=== PATIENT | male | born 1950 | race Caucasian/White ===

== ENCOUNTER 2016-07-28 23:35 | Emergency (ER) | payer OTHER ==
--- NOTE | 2016-07-29 03:56 | ED CLINICAL REPORT ---
Clinical Report - Physicians/Mid Levels [facility] [address] [place] [address] 07/28/2016 23:35 [id number] Time Seen: 00:15 Jul 29 2016. Historian- patient. CPT: ER phys charges level 5 plus (#[id number]). EKG interpretation (#[id number]). HISTORY OF PRESENT ILLNESS Chief Complaint: DIZZINESS and WEAKNESS. ( Fall due to dizziness and weakness.). Severity described as moderate at its maximum. When seen in the E.D., it was gone. Modifying factors- worsened by standing up and changing position. Relieved by nothing. Described as feeling weak all over. This started just prior to arrival and is still present. No nausea or vomiting. Similar symptoms previously: None. Recent medical care: Not recently seen/assessed. REVIEW OF SYSTEMS No headache, double vision, fainting episodes, head injury or chest pain. No palpitations, black stools, fever, sore throat or cough. No abdominal pain, diarrhea, difficulty with urination, skin rash or enlarged lymph nodes. No chills or joint pain. The patient has had weakness. No difficulty walking. All systems otherwise negative, except as recorded above. PAST HISTORY ( Weakness. Leukocytosis. Anemia. Palpitations. Heart Disease. Coronary Artery Disease. Myocardial Infarction. Hypertension. Diabetes Mellitus. Benign Prostatic Hypertrophy. Depression Small pulmonary emboli 2013 Pneumonia 2013.). Medications: Lisinopril Oral 10 mg, daily. MetFORMIN HCl Oral (Tablet 1000 mg) 1 tablet, 2x a day. Nasonex Nasal 2 sprays, daily. Nitrostat Sublingual (Tablet Sublingual 0.4 mg) 1 tablet, PRN. OxyCODONE HCl Oral 5 mg, NEEDED. Tamsulosin HCl Oral (Capsule 0.4 mg) 1 capsule, daily. Vitamin c Oral (Tablet 1000 mg) 1 tablet, DAILY. LEVIMIR 50 UNITS AT NIGHT. Aspirin Oral (Tablet 325 mg) 1 tablet, DAILY. Carvedilol Oral (Tablet 12.5 mg) 1 tablet, 2X A DAY. Ferrous Sulfate Oral (Tablet 27 mg) 2 tablets, daily. Gemfibrozil Oral 600 mg, 2x a day. Allergies: No Known Drug Allergy. SOCIAL HISTORY Never smoker. No alcohol use or drug use. ADDITIONAL NOTES The nursing notes have been reviewed. PHYSICAL EXAM Vital Signs: 07/28/2016 23:40 BP: 123/53. HR: 77. RR: 18. O2 saturation: 95%. Temp: 99.2 F. Appearance: Alert. No acute distress. Eyes: Pupils equal, round and reactive to light. No nystagmus. Extraocular movements normal. ENT: Normal ENT inspection. TM's normal. Moist mucous membranes. Pharynx normal. Neck: Normal inspection. Neck supple. CVS: Normal heart rate and rhythm. Heart sounds normal. Pulses normal. Respiratory: No respiratory distress. Breath sounds normal. Abdomen: Soft and nontender. Back: Normal inspection. Skin: Skin warm. Normal skin color. No rash. Extremities: Extremities exhibit normal ROM. No calf tenderness. No lower extremity edema. Neuro: Alert. Oriented X 3. Mood/affect normal. Speech normal. Cranial nerves normal (as tested). No cerebellar findings. No motor deficit. No sensory deficit. Reflexes normal. LABS, X-RAYS, AND EKG EKG: No acute ischemia. Normal sinus rhythm. Normal P waves. Q waves in lead V1 and V2. Non-specific ST segment / T wave abnormalities. Prior EKG unavailable. The study has been interpreted contemporaneously. The study has been independently viewed by me. The EKG appears to be a good tracing. Laboratory Tests: UA-Culture if indicated: (BOZENA: 07/29/2016 02:41) ( MsgRcvd 07/29/2016 02:54) Final results Test Result Flag Units (Reference) URINE COLOR YELLOW URINE APPEARANCE CLEAR URINE GLUCOSE NEGATIVE (NEGATIVE) URINE BILIRUBIN NEGATIVE (NEGATIVE) URINE KETONE NEGATIVE (NEGATIVE) URINE SPECIFIC GRAVITY 1.025 (1.010-1.030) URINE PH 5.5 (5.0-8.0) URINE PROTEIN NEGATIVE (NEGATIVE) URINE UROBILINOGEN 0.2 EU/dL (0.2-1.0) URINE NITRITE NEGATIVE (NEGATIVE) URINE BLOOD NEGATIVE (NEGATIVE) URINE LEUK ESTERASE NEGATIVE (NEGATIVE) URINE RBC 0-1 rbc/hpf (0-1) URINE WBC 0-1 wbc/hpf (0-1) URINE EPITHELIAL CELLS 0-1 EPI/hpf (0-5) URINE BACTERIA NONE SEEN (NONE SEEN) URINE COMMENT CULT NOT INDICATED URINE CULTURES ARE SET-UP BASED ON THE FOLLOWING CRITERIA:POSITIVE NITRITEPOSITIVE LEUKOCYTE ESTERASEGREATER THAN 10 WHITE BLOOD CELLSMODERATE (2+) OR GREATER BACTERIA CBC w Diff: (BOZENA: 07/29/2016 00:55) ( [facility] 07/29/2016 01:06) Final results Test Result Flag Units (Reference) WHITE BLOOD COUNT 7.8 K/uL (4.5-11.5) RED BLOOD COUNT 3.72 L M/uL (4.50-5.90) HEMOGLOBIN 11.4 L gm/dL (13.5-17.5) HEMATOCRIT 33.7 L % (41.0-53.0) MEAN CELL VOLUME 91 fL (80-100) MEAN CORPUSCULAR HGB 31 pg (26-34) MEAN CORPUSCULAR HGB CONC 34 g/dL (31-37) RED CELL DISTRIBUTION WIDTH 13.2 % (11.6-14.8) PLATELET COUNT 198 K/uL (150-400) NEUTROPHIL % 76.7 H % (50-75) LYMPH % 11.4 L % (25-40) MONO % 10.7 % (3-14) EOSINOPHIL % 1.0 % (0-4) BASOPHIL % 0.2 % (0-2) PT with INR: (BOZENA: 07/29/2016 00:55) ( [facility] 07/29/2016 01:13) Final results Test Result Flag Units (Reference) INR 1.9 H (0.8-1.2) Low Intensity Therapy: INR 1.5-2.0 PT range 18.5-23.1Mod.Intensity Therapy: INR 2.0-3.0 PT range 23.1-31.5High Intensity Therapy: INR 2.5-3.5 PT range 27.4-35.5High Intensity Therapy 2: INR 3.0-4.0 PT range 31.5-39.3 Troponin-I: (BOZENA: 07/29/2016 02:31) ( [facility] 07/29/2016 02:53) Final results Test Result Flag Units (Reference) TROPONIN I <0.05 ng/mL (0.00-1.5) TROPONIN REFERENCE RANGE:<0.1 NEGATIVE0.1-1.5 INDETERMINANT>1.5 POSITIVE Urine Drug Screen: (BOZENA: 07/29/2016 02:41) ( [facility] 07/29/2016 02:57) Final results Test Result Flag Units (Reference) AMPHETAMINE/METHAMPHETAMINE NEGATIVE (NEGATIVE) BARBITURATE NEGATIVE (NEGATIVE) BENZODIAZEPINE NEGATIVE (NEGATIVE) CANNABINOID NEGATIVE (NEGATIVE) COCAINE NEGATIVE (NEGATIVE) ECSTASY NEGATIVE (NEGATIVE) METHADONE NEGATIVE (NEGATIVE) OPIATE NEGATIVE (NEGATIVE) The urine drug screen is a qualitative screening test fordrug overdose and abuse. All screen results should beconsidered as presumptive.Drugs screened for are as follows:BenzodiazepinesCocaineAmphetamines/MetamphetaminesTHC (Tetrahydrocannabinol)OpiatesBarbituratesEcstasyMethadonePositive results are unconfirmed. For confirmation, notifythe lab for the specimen to be sent to the reference lab.All confirmations must be performed by a differentmethodology.The ingestion of natural herbal and plant productscontaining Ephedra/Ephedra metabolites can produce in urineone or more substances capable of cross reacting withamphetamine/methamphetamine immunoassays. These testsprovide a preliminary result only. A more specificalternative chemical method must be used to obtain aconfirmed analytical result. BNP: (BOZENA: 07/29/2016 00:55) ( MngRcvd 07/29/2016 01:27) Final results Test Result Flag Units (Reference) B-TYPE NATRIURETIC PEPTIDE 142 H pg/ml (5-100) Lipase: (BOZENA: 07/29/2016 00:55) ( MngRcvd 07/29/2016 01:31) Final results Test Result Flag Units (Reference) LIPASE 703 H U/L (73-393) THYROID STIMULATING HORMONE 1.464 uIU/mL (0.30-3.74) CHEM 13 PANEL: (BOZENA: 07/29/2016 00:55) ( MsgRcvd 07/29/2016 01:25) Final results Test Result Flag Units (Reference) GLUCOSE 164 H mg/dL (70-110) BUN 29 H mg/dL (7-18) CREATININE 1.5 H mg/dL (0.6-1.3) Estimated GFR 49.77 mL/min Estimated GFR- >60 mL/min Note: Persistent reduction over 3 months in eGFR<60 mL/min/1.73 m2 defines CKD. Patients with eGFR values>=60 mL/min/1.73 m2 may also have CKD if evidence ofpersistent proteinuria. Additional information may be foundat www.kidney.org. SODIUM 140 mmol/L (136-145) POTASSIUM 4.1 mmol/L (3.5-5.1) CHLORIDE 105 mmol/L (98-107) CARBON DIOXIDE 21 mmol/L (21-32) CALCIUM 8.6 mg/dL (8.5-10.1) TOTAL PROTEIN 7.5 g/dL (6.4-8.2) ALBUMIN 3.7 g/dL (3.3-5.0) BILIRUBIN, TOTAL 0.5 mg/dL (0.0-1.0) ALKALINE PHOSPHATASE 67 U/L (46-116) AST (SGOT) 20 U/L (15-37) ALT (SGPT) 14 U/L (12-78) MAGNESIUM 1.5 L mg/dL (1.8-2.4) CPK 251 U/L (24-260) TROPONIN I <0.05 ng/mL (0.00-1.5) TROPONIN REFERENCE RANGE:<0.1 NEGATIVE0.1-1.5 INDETERMINANT>1.5 POSITIVE . PROGRESS AND PROCEDURES Course of Care: 03:52 07/29/16. No findings on lab or exam to explain the weakness episode. Pt says he feels normal now,. He walked 200 feet around the ER and felt normal. His only borderline vital was his oximetry that was bouncing between 90 and 91%. He denies dyspnea. He has had a mild cough over the past few days so a viral illness also considered. Pt had small PE's diagnosed in 2013 and is still on coumadin which is therapeutic today. Do not think that clinically he has a recurrent PE . No sign of CVA, UT, arrhythmia or sepsis. Offerd admission for monitoring. Pt wants to go home and follow up if symptoms return sa he feels baseline at this time. Patient/family counseled. Disposition: Discharged. Condition: stable and improved. CLINICAL IMPRESSION Acute generalized weakness. (Now resolved.). INSTRUCTIONS No strenuous activity. Rest. Drink plenty of fluids. Warnings: Further evaluation is necessary. GENERAL WARNINGS: Return or contact your physician immediately if your condition worsens or changes unexpectedly, if not improving as expected, or if other problems arise. Your Current Medications: CONTINUE TAKING THE FOLLOWING MEDICATIONS: Aspirin Oral : Tablet 325 mg, 1 tablet DAILY. Carvedilol Oral : Tablet 12.5 mg, 1 tablet 2X A DAY. Ferrous Sulfate Oral : Tablet 27 mg, 2 tablets daily. Gemfibrozil Oral : 600 mg 2x a day. LEVIMIR 50 UNITS AT NIGHT*. Lisinopril Oral : 10 mg daily. MetFORMIN HCl Oral : Tablet 1000 mg, 1 tablet 2x a day. Nasonex Nasal : 2 sprays daily. Nitrostat Sublingual : Tablet Sublingual 0.4 mg, 1 tablet PRN. OxyCODONE HCl Oral : 5 mg NEEDED. Tamsulosin HCl Oral : Capsule 0.4 mg, 1 capsule daily. Vitamin c Oral : Tablet 1000 mg, 1 tablet DAILY. Follow-up: Return to the emergency department if not well. Follow up with your doctor Monday in three days. Call for the next available appointment. Understanding of the discharge instructions verbalized by patient. (Electronically signed by Raymond Mayer MD 07/30/2016 11:17)
--- NOTE | 2016-07-29 03:56 | ED CLINICAL REPORT ---
Clinical Report - Physicians/Mid Levels [facility] [address] [place] [address] 07/28/2016 23:35 [id number] Time Seen: 00:15 Jul 29 2016. Historian- patient. CPT: ER phys charges level 5 plus (#[id number]). EKG interpretation (#[id number]). HISTORY OF PRESENT ILLNESS Chief Complaint: DIZZINESS and WEAKNESS. ( Fall due to dizziness and weakness.). Severity described as moderate at its maximum. When seen in the E.D., it was gone. Modifying factors- worsened by standing up and changing position. Relieved by nothing. Described as feeling weak all over. This started just prior to arrival and is still present. No nausea or vomiting. Similar symptoms previously: None. Recent medical care: Not recently seen/assessed. REVIEW OF SYSTEMS No headache, double vision, fainting episodes, head injury or chest pain. No palpitations, black stools, fever, sore throat or cough. No abdominal pain, diarrhea, difficulty with urination, skin rash or enlarged lymph nodes. No chills or joint pain. The patient has had weakness. No difficulty walking. All systems otherwise negative, except as recorded above. PAST HISTORY ( Weakness. Leukocytosis. Anemia. Palpitations. Heart Disease. Coronary Artery Disease. Myocardial Infarction. Hypertension. Diabetes Mellitus. Benign Prostatic Hypertrophy. Depression Small pulmonary emboli 2013 Pneumonia 2013.). Medications: Lisinopril Oral 10 mg, daily. MetFORMIN HCl Oral (Tablet 1000 mg) 1 tablet, 2x a day. Nasonex Nasal 2 sprays, daily. Nitrostat Sublingual (Tablet Sublingual 0.4 mg) 1 tablet, PRN. OxyCODONE HCl Oral 5 mg, NEEDED. Tamsulosin HCl Oral (Capsule 0.4 mg) 1 capsule, daily. Vitamin c Oral (Tablet 1000 mg) 1 tablet, DAILY. LEVIMIR 50 UNITS AT NIGHT. Aspirin Oral (Tablet 325 mg) 1 tablet, DAILY. Carvedilol Oral (Tablet 12.5 mg) 1 tablet, 2X A DAY. Ferrous Sulfate Oral (Tablet 27 mg) 2 tablets, daily. Gemfibrozil Oral 600 mg, 2x a day. Allergies: No Known Drug Allergy. SOCIAL HISTORY Never smoker. No alcohol use or drug use. ADDITIONAL NOTES The nursing notes have been reviewed. PHYSICAL EXAM Vital Signs: 07/28/2016 23:40 BP: 123/53. HR: 77. RR: 18. O2 saturation: 95%. Temp: 99.2 F. Appearance: Alert. No acute distress. Eyes: Pupils equal, round and reactive to light. No nystagmus. Extraocular movements normal. ENT: Normal ENT inspection. TM's normal. Moist mucous membranes. Pharynx normal. Neck: Normal inspection. Neck supple. CVS: Normal heart rate and rhythm. Heart sounds normal. Pulses normal. Respiratory: No respiratory distress. Breath sounds normal. Abdomen: Soft and nontender. Back: Normal inspection. Skin: Skin warm. Normal skin color. No rash. Extremities: Extremities exhibit normal ROM. No calf tenderness. No lower extremity edema. Neuro: Alert. Oriented X 3. Mood/affect normal. Speech normal. Cranial nerves normal (as tested). No cerebellar findings. No motor deficit. No sensory deficit. Reflexes normal. LABS, X-RAYS, AND EKG EKG: No acute ischemia. Normal sinus rhythm. Normal P waves. Q waves in lead V1 and V2. Non-specific ST segment / T wave abnormalities. Prior EKG unavailable. The study has been interpreted contemporaneously. The study has been independently viewed by me. The EKG appears to be a good tracing. Laboratory Tests: UA-Culture if indicated: (BOZENA: 07/29/2016 02:41) ( MsgRcvd 07/29/2016 02:54) Final results Test Result Flag Units (Reference) URINE COLOR YELLOW URINE APPEARANCE CLEAR URINE GLUCOSE NEGATIVE (NEGATIVE) URINE BILIRUBIN NEGATIVE (NEGATIVE) URINE KETONE NEGATIVE (NEGATIVE) URINE SPECIFIC GRAVITY 1.025 (1.010-1.030) URINE PH 5.5 (5.0-8.0) URINE PROTEIN NEGATIVE (NEGATIVE) URINE UROBILINOGEN 0.2 EU/dL (0.2-1.0) URINE NITRITE NEGATIVE (NEGATIVE) URINE BLOOD NEGATIVE (NEGATIVE) URINE LEUK ESTERASE NEGATIVE (NEGATIVE) URINE RBC 0-1 rbc/hpf (0-1) URINE WBC 0-1 wbc/hpf (0-1) URINE EPITHELIAL CELLS 0-1 EPI/hpf (0-5) URINE BACTERIA NONE SEEN (NONE SEEN) URINE COMMENT CULT NOT INDICATED URINE CULTURES ARE SET-UP BASED ON THE FOLLOWING CRITERIA:POSITIVE NITRITEPOSITIVE LEUKOCYTE ESTERASEGREATER THAN 10 WHITE BLOOD CELLSMODERATE (2+) OR GREATER BACTERIA CBC w Diff: (BOZENA: 07/29/2016 00:55) ( [facility] 07/29/2016 01:06) Final results Test Result Flag Units (Reference) WHITE BLOOD COUNT 7.8 K/uL (4.5-11.5) RED BLOOD COUNT 3.72 L M/uL (4.50-5.90) HEMOGLOBIN 11.4 L gm/dL (13.5-17.5) HEMATOCRIT 33.7 L % (41.0-53.0) MEAN CELL VOLUME 91 fL (80-100) MEAN CORPUSCULAR HGB 31 pg (26-34) MEAN CORPUSCULAR HGB CONC 34 g/dL (31-37) RED CELL DISTRIBUTION WIDTH 13.2 % (11.6-14.8) PLATELET COUNT 198 K/uL (150-400) NEUTROPHIL % 76.7 H % (50-75) LYMPH % 11.4 L % (25-40) MONO % 10.7 % (3-14) EOSINOPHIL % 1.0 % (0-4) BASOPHIL % 0.2 % (0-2) PT with INR: (BOZENA: 07/29/2016 00:55) ( [facility] 07/29/2016 01:13) Final results Test Result Flag Units (Reference) INR 1.9 H (0.8-1.2) Low Intensity Therapy: INR 1.5-2.0 PT range 18.5-23.1Mod.Intensity Therapy: INR 2.0-3.0 PT range 23.1-31.5High Intensity Therapy: INR 2.5-3.5 PT range 27.4-35.5High Intensity Therapy 2: INR 3.0-4.0 PT range 31.5-39.3 Troponin-I: (BOZENA: 07/29/2016 02:31) ( [facility] 07/29/2016 02:53) Final results Test Result Flag Units (Reference) TROPONIN I <0.05 ng/mL (0.00-1.5) TROPONIN REFERENCE RANGE:<0.1 NEGATIVE0.1-1.5 INDETERMINANT>1.5 POSITIVE Urine Drug Screen: (BOZENA: 07/29/2016 02:41) ( [facility] 07/29/2016 02:57) Final results Test Result Flag Units (Reference) AMPHETAMINE/METHAMPHETAMINE NEGATIVE (NEGATIVE) BARBITURATE NEGATIVE (NEGATIVE) BENZODIAZEPINE NEGATIVE (NEGATIVE) CANNABINOID NEGATIVE (NEGATIVE) COCAINE NEGATIVE (NEGATIVE) ECSTASY NEGATIVE (NEGATIVE) METHADONE NEGATIVE (NEGATIVE) OPIATE NEGATIVE (NEGATIVE) The urine drug screen is a qualitative screening test fordrug overdose and abuse. All screen results should beconsidered as presumptive.Drugs screened for are as follows:BenzodiazepinesCocaineAmphetamines/MetamphetaminesTHC (Tetrahydrocannabinol)OpiatesBarbituratesEcstasyMethadonePositive results are unconfirmed. For confirmation, notifythe lab for the specimen to be sent to the reference lab.All confirmations must be performed by a differentmethodology.The ingestion of natural herbal and plant productscontaining Ephedra/Ephedra metabolites can produce in urineone or more substances capable of cross reacting withamphetamine/methamphetamine immunoassays. These testsprovide a preliminary result only. A more specificalternative chemical method must be used to obtain aconfirmed analytical result. BNP: (BOZENA: 07/29/2016 00:55) ( NcgRcvd 07/29/2016 01:27) Final results Test Result Flag Units (Reference) B-TYPE NATRIURETIC PEPTIDE 142 H pg/ml (5-100) Lipase: (BOZENA: 07/29/2016 00:55) ( NcgRcvd 07/29/2016 01:31) Final results Test Result Flag Units (Reference) LIPASE 703 H U/L (73-393) THYROID STIMULATING HORMONE 1.464 uIU/mL (0.30-3.74) CHEM 13 PANEL: (BOZENA: 07/29/2016 00:55) ( MsgRcvd 07/29/2016 01:25) Final results Test Result Flag Units (Reference) GLUCOSE 164 H mg/dL (70-110) BUN 29 H mg/dL (7-18) CREATININE 1.5 H mg/dL (0.6-1.3) Estimated GFR 49.77 mL/min Estimated GFR- >60 mL/min Note: Persistent reduction over 3 months in eGFR<60 mL/min/1.73 m2 defines CKD. Patients with eGFR values>=60 mL/min/1.73 m2 may also have CKD if evidence ofpersistent proteinuria. Additional information may be foundat www.kidney.org. SODIUM 140 mmol/L (136-145) POTASSIUM 4.1 mmol/L (3.5-5.1) CHLORIDE 105 mmol/L (98-107) CARBON DIOXIDE 21 mmol/L (21-32) CALCIUM 8.6 mg/dL (8.5-10.1) TOTAL PROTEIN 7.5 g/dL (6.4-8.2) ALBUMIN 3.7 g/dL (3.3-5.0) BILIRUBIN, TOTAL 0.5 mg/dL (0.0-1.0) ALKALINE PHOSPHATASE 67 U/L (46-116) AST (SGOT) 20 U/L (15-37) ALT (SGPT) 14 U/L (12-78) MAGNESIUM 1.5 L mg/dL (1.8-2.4) CPK 251 U/L (24-260) TROPONIN I <0.05 ng/mL (0.00-1.5) TROPONIN REFERENCE RANGE:<0.1 NEGATIVE0.1-1.5 INDETERMINANT>1.5 POSITIVE . PROGRESS AND PROCEDURES Course of Care: 03:52 07/29/16. No findings on lab or exam to explain the weakness episode. Pt says he feels normal now,. He walked 200 feet around the ER and felt normal. His only borderline vital was his oximetry that was bouncing between 90 and 91%. He denies dyspnea. He has had a mild cough over the past few days so a viral illness also considered. Pt had small PE's diagnosed in 2013 and is still on coumadin which is therapeutic today. Do not think that clinically he has a recurrent PE . No sign of CVA, [place], arrhythmia or sepsis. Offerd admission for monitoring. Pt wants to go home and follow up if symptoms return sa he feels baseline at this time. Patient/family counseled. Disposition: Discharged. Condition: stable and improved. CLINICAL IMPRESSION Acute generalized weakness. (Now resolved.). INSTRUCTIONS No strenuous activity. Rest. Drink plenty of fluids. Warnings: Further evaluation is necessary. GENERAL WARNINGS: Return or contact your physician immediately if your condition worsens or changes unexpectedly, if not improving as expected, or if other problems arise. Your Current Medications: CONTINUE TAKING THE FOLLOWING MEDICATIONS: Aspirin Oral : Tablet 325 mg, 1 tablet DAILY. Carvedilol Oral : Tablet 12.5 mg, 1 tablet 2X A DAY. Ferrous Sulfate Oral : Tablet 27 mg, 2 tablets daily. Gemfibrozil Oral : 600 mg 2x a day. LEVIMIR 50 UNITS AT NIGHT*. Lisinopril Oral : 10 mg daily. MetFORMIN HCl Oral : Tablet 1000 mg, 1 tablet 2x a day. Nasonex Nasal : 2 sprays daily. Nitrostat Sublingual : Tablet Sublingual 0.4 mg, 1 tablet PRN. OxyCODONE HCl Oral : 5 mg NEEDED. Tamsulosin HCl Oral : Capsule 0.4 mg, 1 capsule daily. Vitamin c Oral : Tablet 1000 mg, 1 tablet DAILY. Follow-up: Return to the emergency department if not well. Follow up with your doctor Monday in three days. Call for the next available appointment. Understanding of the discharge instructions verbalized by patient. (Electronically signed by Raymond Mayer MD 07/30/2016 11:17)
--- NOTE | 2016-07-29 03:56 | ED NURSING NOTES ---
Clinical Report - Nurses [facility] [address] [place] [address] 07/28/2016 23:35 [id number] Triage time 23:40 Jul 28 2016. Chief Complaint: FALL. --23:45 Yonny Edwards R.N. 23:40 07/28/16. BP: 123/53. HR: 77. RR: 18. O2 saturation: 95%. Temp: 99.2 F. Pain level now 0/10. --23:45 Yonny Edwards R.N. Acuity: LEVEL 3. --23:45 Yonny Edwards R.N. Weight: 127 kg stated. Height/Length: 71 inches Per Patient. BMI: 39.1. --23:44 Yonny Edwards R.N. Medications Aspirin Oral (Tablet 325 mg) 1 tablet, DAILY. Carvedilol Oral (Tablet 12.5 mg) 1 tablet, 2X A DAY. Ferrous Sulfate Oral (Tablet 27 mg) 2 tablets, daily. Gemfibrozil Oral 600 mg, 2x a day. --23:43 Yonny Edwards R.N. LEVIMIR 50 UNITS AT NIGHT. --23:43 Yonny Edwards R.N. Lisinopril Oral 10 mg, daily. MetFORMIN HCl Oral (Tablet 1000 mg) 1 tablet, 2x a day. Nasonex Nasal 2 sprays, daily. Nitrostat Sublingual (Tablet Sublingual 0.4 mg) 1 tablet, PRN. OxyCODONE HCl Oral 5 mg, NEEDED. Tamsulosin HCl Oral (Capsule 0.4 mg) 1 capsule, daily. Vitamin c Oral (Tablet 1000 mg) 1 tablet, DAILY. --23:43 Yonny Edwards R.N. Allergies No Known Drug Allergy. --23:43 Yonny Edwards R.N. History Arrived by EMS. Historian: patient. ( Pt had ground level fall in kitchen, pt was unable to get up felt dizzy. NO LOC no pain). This occurred just prior to arrival. SOCIAL HX: Never smoker. No alcohol use or drug use. --23:45 Yonny Edwards R.N. PROBLEMS: Weakness. Leukocytosis. Anemia. Palpitations. Heart Disease. Coronary Artery Disease. Myocardial Infarction. Hypertension. Diabetes Mellitus. Benign Prostatic Hypertrophy. Depression. --23:44 Yonny Edwards R.N. Interventions ID band on patient. To treatment room. --23:45 Yonny Edwards R.N. NURSING PROGRESS NOTES Patient gowned. Reassurance given. Call light placed in reach. Side rails up x 1. Bed placed in lowest position. --23:47 Yonny Edwards R.N. EKG time: (00:39:04 AM). EKG was performed by a tech and shown to the ED physician. --00:39 Jimenez Salas 01:01 07/29/2016 Site #1 started via IV in the right antecubital space with an 20g angiocath, with aseptic technique and good blood return; one attempt. Blood drawn: rainbow set. Labeled in the presence of the patient and sent to the lab. Saline lock flushed with saline. --01:01 Yonny Edwards R.N. ( Orthostatic supine BP 104/50 HR 78). --01:34 Jimenez Salas ( Orthostatic sitting BP 108/51 HR 90). --01:34 Jimenez Salas ( Orthostatic standing BP 111/59 HR 90). --01:34 Jmienez Salas Checked patient name and birthdate: patient confirmed. Instructions provided to collect clean catch urine urine collected; sample sent to lab for urinalysis. Specimen labeled in the presence of the patient. --02:43 Jimenez Salas The patient ambulated with assistance (100 feet) and tolerated well. He was assisted back to the stretcher. --03:46 Drew Alcazar R.N. DISPOSITION / DISCHARGE Departure time: 416. Condition at departure: improved. No learning barriers present. Discharge instructions provided and reviewed with the patient. Reviewed warnings. Reviewed medication(s). Treatments reviewed. Reviewed referrals. Activity restrictions reviewed. Work note given. Patient verbalized understanding. Written instructions provided in Setswana. The patient was discharged by the physician. He was discharged home and accompanied by spouse. He left the Emergency Department ambulatory and via private vehicle. Spouse driving. --04:17 Drew Alcazar R.N. 04:17 07/29/16. BP: 115/52. HR: 78. RR: 18. O2 saturation: 91%. Temp: 98 F. Pain level now 0/10. --04:17 Drew Alcazar R.N. Locked/Released at 07/29/2016 4:18 by Drew Alcazar R.N.
--- NOTE | 2016-07-29 03:56 | ED ORDER SUMMARY ---
..... Patient: MIKE HENDERSON OrderSheet [facility] VisitID: [id number] [place] [address] 65y, M Registration Date/Time: 07/28/2016 ORDER SHEET Weight: 127.0 kg (stated) Allergies: No Known Drug Allergy GENERAL ORDERS: Chest 2V Urgent (00:07/29/2016 Jennifer FU) (Ack 0:26 CHagerty ER Supply Chain Development Manager) (0:47 Mehdiger) Policy Issue Clerk (Continuous) (:07/29/2016 Jennifer FU) (Ack 0:26 CHagerty ER Supply Chain Development Manager) (0:42 Andrez) Blood Culture (No) (N/A) Urgent (00:07/29/2016 Jennifer FU) (Ack 0:26 CHagerty ER Supply Chain Development Manager) (1:15 JBullard R.N.) PT with INR Urgent (00:07/29/2016 Jennifer FU) (Ack 0:26 CHagmiguel ER Supply Chain Development Manager) (1:15 JBullard R.N.) UA-Culture if indicated Urgent (00:07/29/2016 Jennifer FU) (Ack 0:26 CHagmiguel ER Supply Chain Development Manager) (3:25 JBullard R.N.) Cardiac Panel Stat (00:07/29/2016 Jennifer FU) (Ack 0:26 CHagmiguel ER Supply Chain Development Manager) (1:15 JBullard R.N.) BNP Urgent (00:07/29/2016 Jennifer FU) (Ack 0:26 CHagerty ER Supply Chain Development Manager) (1:15 JBullard R.N.) Lipase Urgent (00:07/29/2016 Jennifer FU) (Ack 0:26 CHagerty ER Supply Chain Development Manager) (1:15 JBullard R.N.) Urine Drug Screen Urgent (00:07/29/2016 Jennifer FU) (Ack 0:26 Amrit ER Supply Chain Development Manager) (3:25 JBullard R.N.) TSH Urgent (00:07/29/2016 Jennifer FU) (Ack 0:26 CHagmiguel ER Supply Chain Development Manager) (1:15 JBullard R.N.) Oxygen (2 L/min) (NC) (00:23 07/29/2016 Jennifer FU) (Ack 0:26 CHagerty ER Supply Chain Development Manager) (0:42 SBaldwin) Pulse oximeter (00:23 07/29/2016 Jennifer FU) (Ack 0:26 CHagerty ER Supply Chain Development Manager) (0:42 SBaldwin) EKG - ER Stat (00:07/29/2016 Jennifer FU) (Ack 0:26 CHagerty ER Supply Chain Development Manager) (0:42 SBaldwin) - (orthostatic BP/P) (01:15 07/29/2016 Jennifer FU) (1:35 SBaldwin) Troponin-I (4 hour troponin.) Urgent (02:07/29/2016 Jennifer FU) (Ack 2:27 CHagerty ER Supply Chain Development Manager) (3:25 Amber R.N.) MEDICATION ORDERS: IV FLUIDS: IV Saline Lock (00:07/29/2016 Jennifer FU) (1:01 Mert R.NFeroz) ORDER SHEET NOTES: [Electronically signed by Drew Alcazar R.N. (04:18 07/29/2016)] [Electronically signed by Raymond Mayer MD (11:17 07/30/2016)] [Electronically locked/signed by Drew Alcazar R.N. (04:18 07/29/2016)]
--- NOTE | 2016-07-29 03:56 | ED ORDER SUMMARY ---
..... Patient: MIKE HENDERSON OrderSheet [facility] VisitID: [id number] [place] [address] 65y, M Registration Date/Time: 07/28/2016 ORDER SHEET Weight: 127.0 kg (stated) Allergies: No Known Drug Allergy GENERAL ORDERS: Chest 2V Urgent (00:07/29/2016 Jennifer FU) (Ack 0:26 CHagerty ER Inbound Sales Advisor) (0:47 Mehdiger) Steel Heater (Continuous) (:07/29/2016 Jennifer FU) (Ack 0:26 CHagerty ER Inbound Sales Advisor) (0:42 Andrez) Blood Culture (No) (N/A) Urgent (00:07/29/2016 Jennifer FU) (Ack 0:26 CHagerty ER Inbound Sales Advisor) (1:15 JBullard R.N.) PT with INR Urgent (00:07/29/2016 Jennifer FU) (Ack 0:26 CHagmiguel ER Inbound Sales Advisor) (1:15 JBullard R.N.) UA-Culture if indicated Urgent (00:07/29/2016 Jennifer FU) (Ack 0:26 CHagmiguel ER Inbound Sales Advisor) (3:25 JBullard R.N.) Cardiac Panel Stat (00:07/29/2016 Jennifer FU) (Ack 0:26 CHagmiguel ER Inbound Sales Advisor) (1:15 JBullard R.N.) BNP Urgent (00:07/29/2016 Jennifer FU) (Ack 0:26 CHagerty ER Inbound Sales Advisor) (1:15 JBullard R.N.) Lipase Urgent (00:07/29/2016 Jennifer FU) (Ack 0:26 CHagerty ER Inbound Sales Advisor) (1:15 JBullard R.N.) Urine Drug Screen Urgent (00:07/29/2016 Jennifer FU) (Ack 0:26 Amrit ER Inbound Sales Advisor) (3:25 JBullard R.N.) TSH Urgent (00:07/29/2016 Jennifer FU) (Ack 0:26 CHagmiguel ER Inbound Sales Advisor) (1:15 JBullard R.N.) Oxygen (2 L/min) (NC) (00:23 07/29/2016 Jennifer FU) (Ack 0:26 CHagerty ER Inbound Sales Advisor) (0:42 SBaldwin) Pulse oximeter (00:23 07/29/2016 Jennifer FU) (Ack 0:26 CHagerty ER Inbound Sales Advisor) (0:42 SBaldwin) EKG - ER Stat (00:07/29/2016 Jennifer FU) (Ack 0:26 CHagerty ER Inbound Sales Advisor) (0:42 SBaldwin) - (orthostatic BP/P) (01:15 07/29/2016 Jennifer FU) (1:35 SBaldwin) Troponin-I (4 hour troponin.) Urgent (02:07/29/2016 Jennifer FU) (Ack 2:27 CHagerty ER Inbound Sales Advisor) (3:25 Amber R.N.) MEDICATION ORDERS: IV FLUIDS: IV Saline Lock (00:07/29/2016 Jennifer FU) (1:01 Mert R.NFeroz) ORDER SHEET NOTES: [Electronically signed by Drew Alcazar R.N. (04:18 07/29/2016)] [Electronically signed by Raymond Mayer MD (11:17 07/30/2016)] [Electronically locked/signed by Drew Alcazar R.N. (04:18 07/29/2016)]
--- NOTE | 2016-07-29 06:40 | DIAGNOSTIC IMAGING REPORT ---
PROCEDURE: XR CHEST 2 VIEW INDICATION: FEVER, initial encounter TECHNIQUE: PA and lateral view. COMPARISON: Chest x-ray 10/10/2013 FINDINGS: Minor left basilar parenchymal changes suggestive of pneumonia. Right lung is clear. Hyperinflation. Bilateral lateral pleural thickening. No effusions. Heart size, mediastinum and prior vessels are normal. Moderate degenerative changes of the spine. IMPRESSION: 1. Hyperinflation 2. Minor left basilar infiltrate
--- NOTE | 2016-07-30 11:17 | ED MED RECONCILIATION SUMMARY ---
Patient: MIKE HENDERSON Medication Reconciliation Report [facility] VisitID: [id number] [address] [place] [address] 65y, M Registration Date/Time: 07/28/2016 Weight: 127.0 kg Height/Length: 71 in. BMI: 39.1 ALLERGIES: No Known Drug Allergy The patient's Home Medications are listed below: CONTINUE TAKING THE FOLLOWING MEDICATIONS: Aspirin Oral (325 mg) 1 tablet, DAILY Carvedilol Oral (12.5 mg) 1 tablet, 2X A DAY Ferrous Sulfate Oral (27 mg) 2 tablets, daily Gemfibrozil Oral 600 mg, 2x a day LEVIMIR 50 UNITS AT NIGHT Lisinopril Oral 10 mg, daily MetFORMIN HCl Oral (1000 mg) 1 tablet, 2x a day Nasonex Nasal 2 sprays, daily Nitrostat Sublingual (0.4 mg) 1 tablet, PRN OxyCODONE HCl Oral 5 mg, NEEDED Tamsulosin HCl Oral (0.4 mg) 1 capsule, daily Vitamin c Oral (1000 mg) 1 tablet, DAILY The source(s) of the original Home Medication information: Not obtained. The following Medications were given to the patient in the Emergency Department: None. The following Medications were prescribed to the patient: None.
--- NOTE | 2016-07-30 11:17 | ED MAR SUMMARY ---
..... Medication Administration Record [facility] [address] [place], [place] [id number] Patient: MIKE HENDERSON Visit ID: [id number] 65y, M Weight: 127.0 kg Height/Length: 71 in BMI: 39.1 ALLERGIES: No Known Drug Allergy
--- NOTE | 2016-07-30 11:17 | ED DISCHARGE INSTRUCTIONS ---
Patient: MIKE HENDERSON General Instructions [facility] VisitID: [id number] [place] [address] 65y, M Registration Date/Time: 07/28/2016 Acute generalized weakness. (Now resolved.). INSTRUCTIONS No strenuous activity. Rest. Drink plenty of fluids. Warnings: Further evaluation is necessary. GENERAL WARNINGS: Return or contact your physician immediately if your condition worsens or changes unexpectedly, if not improving as expected, or if other problems arise. Your Current Medications: CONTINUE TAKING THE FOLLOWING MEDICATIONS: Aspirin Oral : Tablet 325 mg, 1 tablet DAILY. Carvedilol Oral : Tablet 12.5 mg, 1 tablet 2X A DAY. Ferrous Sulfate Oral : Tablet 27 mg, 2 tablets daily. Gemfibrozil Oral : 600 mg 2x a day. LEVIMIR 50 UNITS AT NIGHT*. Lisinopril Oral : 10 mg daily. MetFORMIN HCl Oral : Tablet 1000 mg, 1 tablet 2x a day. Nasonex Nasal : 2 sprays daily. Nitrostat Sublingual : Tablet Sublingual 0.4 mg, 1 tablet PRN. OxyCODONE HCl Oral : 5 mg NEEDED. Tamsulosin HCl Oral : Capsule 0.4 mg, 1 capsule daily. Vitamin c Oral : Tablet 1000 mg, 1 tablet DAILY. Follow-up: Return to the emergency department if not well. Follow up with your doctor Monday in three days. Call for the next available appointment. Understanding of the discharge instructions verbalized by patient. ADDITIONAL INFORMATION Weakness [Uncertain Cause] Based on your exam today, the exact cause of your weakness is not certain. However, your weakness does not seem to be a sign of a serious illness at this time. Sometimes the signs of a serious illness take more time to appear. Therefore, please watch for the warning signs listed below. Home Care: 1) Rest at home today. Do not over-exert yourself. 2) Take your medicine as prescribed. 3) For the next few days, drink extra fluids (unless your doctor wants you to restrict fluids for other reasons). Do not skip meals. Follow Up with your doctor or as advised if you are not starting to feel better within TWO days. Get Prompt Medical Attention if any of the following occur: Worsening of your symptoms Chest, arm, neck, jaw or upper back pain Dizziness or fainting Trouble breathing Unable to eat or drink normal amounts Nausea, frequent vomiting, frequent diarrhea Abdominal pain Numbness or weakness of the face, one arm or one leg Slurred speech, confusion, trouble speaking, walking or seeing Blood in vomit or stool (black or red color) Fever of 100.4 F (38 C) or higher, or as directed by your healthcare provider You have been given the following additional information: Weakness, Unk Cause No strenuous activity. Rest. (Electronically signed by Raymond Mayer MD 07/30/2016 11:17)
--- NOTE | 2016-07-30 11:17 | ED MAR SUMMARY ---
..... Medication Administration Record [facility] [address] [place], [place] [id number] Patient: MIKE HENDERSON Visit ID: [id number] 65y, M Weight: 127.0 kg Height/Length: 71 in BMI: 39.1 ALLERGIES: No Known Drug Allergy
--- NOTE | 2016-07-30 11:17 | ED MED RECONCILIATION SUMMARY ---
Patient: MIKE HENDERSON Medication Reconciliation Report [facility] VisitID: [id number] [address] [place] [address] 65y, M Registration Date/Time: 07/28/2016 Weight: 127.0 kg Height/Length: 71 in. BMI: 39.1 ALLERGIES: No Known Drug Allergy The patient's Home Medications are listed below: CONTINUE TAKING THE FOLLOWING MEDICATIONS: Aspirin Oral (325 mg) 1 tablet, DAILY Carvedilol Oral (12.5 mg) 1 tablet, 2X A DAY Ferrous Sulfate Oral (27 mg) 2 tablets, daily Gemfibrozil Oral 600 mg, 2x a day LEVIMIR 50 UNITS AT NIGHT Lisinopril Oral 10 mg, daily MetFORMIN HCl Oral (1000 mg) 1 tablet, 2x a day Nasonex Nasal 2 sprays, daily Nitrostat Sublingual (0.4 mg) 1 tablet, PRN OxyCODONE HCl Oral 5 mg, NEEDED Tamsulosin HCl Oral (0.4 mg) 1 capsule, daily Vitamin c Oral (1000 mg) 1 tablet, DAILY The source(s) of the original Home Medication information: Not obtained. The following Medications were given to the patient in the Emergency Department: None. The following Medications were prescribed to the patient: None.
== END 2016-07-29 04:15 | disposition home or self-care (01) ==
LOC: ED SRH 23:35
DX: R53.1 Weakness (principal); I10 Essential (primary) hypertension; Z79.01 Long term (current) use of anticoagulants; Z86.711 Personal history of pulmonary embolism; I25.10 Atherosclerotic heart disease of native coronary artery without angina pectoris; I25.2 Old myocardial infarction; E11.9 Type 2 diabetes mellitus without complications; Z79.84 Long term (current) use of oral hypoglycemic drugs
CPT/HCPCS: 90004; 90065; 90100; 90616; 91320; 92235; 92610; 92720; 92760; 92761; 92762; 92763; 92764; 92765; 92766; 92767; 93140; 94060; 95059